=== PATIENT | male | born 2000 | race Two or more races ===

== ENCOUNTER → 2023-11-13 | Emergency (ER) | payer SELFPAY ==
[~2023-11-13] VITALS: Ht 177.8 cm; Wt 71.0 kg
[2023-11-13 12:05] VITALS: BP 120/71; PULSE 89; RESP 18; O2SAT 99
== END | disposition home or self-care (01) ==
LOC: ER 11:27 → EDBD 11:27
DX: S09.90XA Unspecified injury of head, initial encounter (principal); R55 Syncope and collapse; W18.39XA Other fall on same level, initial encounter; Y93.89 Activity, other specified; Y92.89 Other specified places as the place of occurrence of the external cause; Y99.8 Other external cause status
CPT/HCPCS: 70450; 72040; 82962; 93005

== ENCOUNTER 2023-12-22 21:01 | Emergency (ER) | payer MEDICAID, OTHER ==
[~2023-12-22] VITALS: Ht 175.3 cm; Wt 80.0 kg
[2023-12-23] MEDS ORDERED: PRED20TA2 PO (00:37)
[2023-12-23] MEDS ORDERED: IBUP1TAB5 PO (00:37)
[2023-12-23] MEDS ORDERED: AUG875T PO (00:37)
[2023-12-23] MEDS ORDERED: FLUT1SPR5 (00:37)
[2023-12-23 01:06] VITALS: BP 126/84; PULSE 50; RESP 14; TEMP 99.3; O2SAT 99
== END 2023-12-23 01:06 | disposition home or self-care (01) ==
LOC: ER 21:01
DX: J01.10 Acute frontal sinusitis, unspecified (principal); M62.838 Other muscle spasm; R59.1 Generalized enlarged lymph nodes; F15.90 Other stimulant use, unspecified, uncomplicated
CPT/HCPCS: 72040